=== PATIENT | male | born 1955 | race American Indian/Alaskan Native ===

== ENCOUNTER 2020-11-29 08:00 | Outpatient (CLI) | payer OTHER | END 2020-11-29 08:30 | disposition home or self-care (01) | LOC: PPH VACUNA 08:00 | DX: Z23 Encounter for immunization (principal) ==

== ENCOUNTER 2020-12-20 09:15 | Outpatient (CLI) | payer OTHER | END 2020-12-20 09:25 | disposition home or self-care (01) | LOC: PPH VACUNA 09:15 | PROVIDERS: ATTEND Emergency Medicine Pediatric Emergency Medicine | DX: Z23 Encounter for immunization (principal) ==